=== PATIENT | male | born 1980 | race Caucasian/White ===

== ENCOUNTER 2017-08-17 14:36 | Emergency (ER) | payer BC ==
--- NOTE | 2017-08-17 15:09 | Emergency Department Record ---
History of Present Illness - General Chief Complaint: Laceration(s) Stated Complaint: LT INDEX TIP LACERATION Time Seen by Provider: 08/17/17 15:01 Source: Patient Mode of Arrival: Ambulatory - History of Present Illness Initial Commments: left index finger healing slowly but not infected and it was glued at HGB about 10 days ago but it didn't take . Onset/Timin -: Days(s) Place: Home Context: Accidental - Mike Coma Scale Eye Response: (4) Open spontaneously Motor Response: (6) Obeys commands Verbal Response: (5) Oriented [place] Total: 15 - Related Data Home Medications Medication Instructions Recorded Confirmed Last Taken Albuterol Sulfate [Proair Hfa] 1 - 2 puff IH .EVERY 4-6 HOURS PRN 08/17/1708/1708/16/17 Eszopiclone [Lunesta] 3 mg PO QHS 08/17/17 08/17/17 08/16/17 Pantoprazole Sodium [Protonix] 40 mg PO DAILY 08/17/17 08/17/17 08/16/17 Allergies Allergy/AdvReac Type Severity Reaction Status Date / Time No Known Drug Allergies Allergy Verified 08/17/17 14:40 Travel Screening - Travel/Exposure Within Last 30 Days Have you traveled within the last 30 days?: No - Travel/Exposure Within Last Year Have you traveled outside the [place] in the last year?: No - Additonal Travel Details Have you been exposed to anyone with a communicable illness?: No - Travel Symptoms Symptom Screening: None Review of Systems Reviewed: No additional complaints except as noted below Constitutional: Reports: As per HPI. Denies: Chills, Fever, Malaise, Night sweats, Weakness, Weight change Eyes: Reports: As per HPI. Denies: Eye discharge, Eye pain, Photophobia, Vision change ENT: Reports: As per HPI. Denies: Congestion, Dental pain, Ear pain, Epistaxis , Hearing loss, Throat pain Respiratory: Reports: As per HPI. Denies: Cough, Dyspnea, Hemoptysis, Stridor, Wheezes Cardiovascular: Reports: As per HPI. Denies: Arrhythmia, Chest pain, Dyspnea on exertion, Edema, Murmurs, Orthopnea, Palpitations, Paroxysmal nocturnal dyspnea, Rheumatic Fever, Syncope Endocrine: Reports: As per HPI. Denies: Fatigue, Heat or cold intolerance, Polydipsia, Polyuria Gastrointestinal: Reports: As per HPI. Denies: Abdominal pain, Constipation, Diarrhea, Hematemesis, Hematochezia, Melena, Nausea, Vomiting Genitourinary: Reports: As per HPI. Denies: Dysuria, Frequency, Hematuria, Incontinence, Retention, Testicular pain, Testicular mass, Urgency Musculoskeletal: Reports: As per HPI. Denies: Arthralgia, Back pain, Gout, Joint swelling, Myalgia, Neck pain Skin: Reports: As per HPI. Denies: Bruising, Change in color, Change in hair/ nails, Lesions, Pruritus, Rash Neurological: Reports: As per HPI. Denies: Abnormal gait, Confusion, Headache, Numbness, Paresthesias, Seizure, Tingling, Tremors, Vertigo, Weakness Psychiatric: Reports: As per HPI. Denies: Anxiety, Auditory hallucinations, Depression, Homicidal thoughts, Suicidal thoughts, Visual hallucinations Hematological/Lymphatic: Reports: As per HPI. Denies: Anemia, Blood Clots, Easy bleeding, Easy bruising, Swollen glands Past Medical History - SOCIAL HISTORY Smoking Status: Current every day smoker Alcohol Use: None Drug Use: None - RESPIRATORY Hx Respiratory Disorders: Yes Hx Asthma: Yes - CARDIOVASCULAR Hx Cardio Disorders: No - NEURO Hx Neuro Disorders: No - Hx Genitourinary Disorders: No - ENDOCRINE Hx Endocrine Disorders: No - MUSCULOSKELETAL Hx Musculoskeletal Disorders: No - PSYCH Hx Psych Problems: No - HEMATOLOGY/ONCOLOGY Hx Hematology/Oncology Disorders: No Family Medical History Any Significant Family History?: No Physical Exam - General General Appearance: Alert, Oriented x3, Cooperative, No acute distress - Head Head exam: Normal inspection - Eye Eye exam: Normal appearance, PERRL Pupils: Normal accommodation - ENT ENT exam: Normal exam, Mucous membranes moist, Normal external ear exam, Normal orophraynx, TM's normal bilaterally Ear exam: Normal external inspection. negative: External canal tenderness Nasal Exam: Normal inspection. negative: Discharge, Sinus tenderness Mouth exam: Normal external inspection, Tongue normal Teeth exam: Normal inspection. negative: Dental caries Throat exam: Normal inspection. negative: Tonsillar erythema, Tonsillar exudate - Neck Neck exam: Normal inspection, Full ROM. negative: Tenderness - Respiratory Respiratory exam: Normal lung sounds bilaterally. negative: Respiratory distress - Cardiovascular Cardiovascular Exam: Regular rate, Normal rhythm, Normal heart sounds - GI/Abdominal GI/Abdominal exam: Soft, Normal bowel sounds. negative: Tenderness - Rectal Rectal exam: Deferred - exam: Deferred - Extremities Extremities exam: Normal inspection (laceration of 10 days ago and no signs of infection and slightly gapped open), Full ROM, Normal capillary refill, Other. negative: Tenderness - Back Back exam: Reports: Normal inspection, Full ROM. Denies: Muscle spasm, Rash noted, Tenderness - Neurological Neurological exam: Alert, Normal gait, Oriented X3, Reflexes normal - Psychiatric Psychiatric exam: Normal affect, Normal mood - Skin Skin exam: Dry, Intact, Normal color, Warm Course Vital Signs 08/17/17 14:42 Temperature 98.4 F Pulse Rate 78 Respiratory 18 Rate Blood Pressure 127/74 Pulse Ox 97 - Reevaluation(s) Reevaluation #1: No sutures 08/17/17 15:08 Disposition Clinical Impression: Laceration of finger Qualifiers: Encounter type: initial encounter Finger: index finger Damage to nail status: without damage Foreign body presence: without foreign body Laterality: left Qualified Code(s): S61.211A - Laceration without foreign body of left index finger without damage to nail, initial encounter Disposition: Home, Self-Care Condition: (1) Good Instructions: Laceration (ED) Additional Instructions: wound care Time of Disposition: 15:08 Quality - Quality Measures Quality Measures: N/A - Blood Pressure Screening Does Patient Have Any of the Following: No Blood Pressure Classification: Pre-Hypertensive BP Reading Systolic Measurement: 127 Diastolic Measurement: 74 Screening for High Blood Pressure: < Pre-Hypertensive BP, F/U Documented > [ [id number]] Pre-Hypertensive Follow-up Interventions: Referral to alternative/primary care provider.
== END 2017-08-17 15:14 | disposition home or self-care (01) ==
LOC: ER 14:36
DX: S61.211D Laceration without foreign body of left index finger without damage to nail, subsequent encounter (principal); W45.8XXA Other foreign body or object entering through skin, initial encounter; F17.210 Nicotine dependence, cigarettes, uncomplicated; Y92.009 Unspecified place in unspecified non-institutional (private) residence as the place of occurrence of the external cause
CPT/HCPCS: 99282